=== PATIENT | male | born 1995 | race Two or more races ===

== ENCOUNTER 2024-08-24 11:55 | Emergency (ER) | payer SELFPAY ==
[2024-08-24] MEDS ORDERED: Sodium Chloride 0.9% 10 ML Syringe FLUSH PRN (12:05)
[2024-08-24] MEDS: Ondansetron 4 MG/2 ML SDV IVPUSH ONE (12:18)
[2024-08-24] MEDS: Ketorolac 15 MG/ML SDV IVPUSH ONE (12:50)
== END 2024-08-24 13:12 | disposition home or self-care (01) ==
LOC: LB.ED 11:55
DX: R07.89 Other chest pain (principal)
CPT/HCPCS: 71101-LT; 96374; 96375; 99283; 99283-25; J1885; J2270; J2405